=== PATIENT | male | born 2000 | race Asian ===

== ENCOUNTER 2022-04-23 16:59 | Inpatient (IN) | payer OTHER, SELFPAY ==
[2022-04-23 17:47] LABS: #Basophils 0.2 10x3/uL (0.0-0.2); %Basophils 1.6 % (0.0-2.0); %Lymphocytes 4.2 % (18.0-47.0); %Monocytes 9.3 % (0.0-10.0); %Neutrophils 80.9 % (40.0-75.0); Hemoglobin 14.7 g/dL (13.5-17.5); Mean Corpuscular HGB CONC 32.8 g/dL (32.0-36.0); Mean Corpuscular Hemoglobin 29.1 pg (27.0-33.0); Mean Corpuscular Volume 88.7 fl (81.2-95.1); Platelet Count 265 10x3/uL (150-450); RBC Distribution Width 14.7 % (11.5-14.5); Red Blood Cell (RBC) Count 5.05 10x6/uL (4.32-5.72); White Blood Cell (WBC) Count 11.1 10x3/uL (3.5-10.5)
[2022-04-23 17:56] LABS: Actual Bicarbonate (HCO3v) 10 mEq/L (22-28); Base Excess -19.1 mEq/L (-2.0 to +3.0); Calcium, Ionized (venous) 1.22 mmol/L (1.16-1.32); Chloride (VBG) 105 mmol/L (98-106); Hemoglobin (Hb) 15.4 g/dL (13.2-17.3); Potassium (VBG) 5.57 mmol/L (3.70-5.30); Puncture Site Other Site; Sodium 134.6 mmol/L (133-146)
[2022-04-23 18:25] LABS: ALT (SGPT) 15 U/L (8-55); AST (SGOT) 9 U/L (5-34); Albumin 3.5 g/dL (3.5-5.0); Alkaline Phosphatase 96 U/L (40-110); BUN (Urea Nitrogen) 16 mg/dL (8.9-20.6); Bilirubin, Total 0.4 mg/dL (0.2-1.2); Calc. Creatinine Clearance 0 mL/min (70-130); Calcium 8.2 mg/dL (7.8-10.44); Chloride 104 mmol/L (98-107); Estimated GFR 73; Globulin 3.2 g/dL (2.4-3.5); Lipase 103 U/L (8-78); Potassium 5.4 mmol/L (3.5-5.1); Protein, Total 6.7 g/dL (6.0-8.3); Sodium 132 mmol/L (136-145)
[2022-04-23] MEDS ORDERED: INSULIN REGULAR IN 0.9 % NACL 100 UNIT in Premix Bag 1 BAG IVPB SCH (18:30)
[2022-04-23 18:33] LABS: Carbon Dioxide Less than 8 mmol/L (22-29); Glucose 748 mg/dL (70-105)
[2022-04-23 18:34] LABS: SARS-CoV-2 NAA Rapid Test Not Detected (NotDetected)
[2022-04-23] MEDS ORDERED: Ondansetron PF 4 MG/2 ML Vial IVP PRN (19:05)
[2022-04-23] MEDS ORDERED: Acetaminophen 325 MG TAB PO PRN (19:05)
[2022-04-23] MEDS ORDERED: Guaifenesin DM 100-10/5 ML UDCUP PO PRN (19:05)
[2022-04-23] MEDS ORDERED: Calcium Carbonate 500 MG ChewTAB PO PRN (19:05)
[2022-04-23] MEDS ORDERED: Senokot S 8.6-50 MG TAB PO PRN (19:05)
[2022-04-23] MEDS ORDERED: Zolpidem Tartrate 5 MG TAB PO PRN (19:05)
[2022-04-23] MEDS ORDERED: Sodium Chloride 0.45% 1,000 ML IV SCH (21:15)
[2022-04-23] MEDS ORDERED: Sodium Chloride 0.9% 500 ML IV SCH (21:15)
[2022-04-23] MEDS ORDERED: Amlodipine 5 MG TAB PO SCH (21:30)
[2022-04-23] MEDS ORDERED: Atorvastatin Calcium 10 MG TAB PO SCH (21:30)
[2022-04-23 21:39] LABS: Anion Gap 23 mmol/L (10-20); BUN (Urea Nitrogen) 13 mg/dL (8.9-20.6); Calc. Creatinine Clearance 135 mL/min (70-130); Calcium 9.4 mg/dL (7.8-10.44); Carbon Dioxide 10 mmol/L (22-29); Chloride 110 mmol/L (98-107); Estimated GFR 89; Glucose 352 mg/dL (70-105); Magnesium 2.2 mg/dL (1.6-2.6); Potassium 3.7 mmol/L (3.5-5.1); Sodium 139 mmol/L (136-145)
[2022-04-23 21:55] LABS: Phosphorus 1.5 mg/dL (2.3-4.7)
[2022-04-23] MEDS ORDERED: Potassium Chloride 20 MEQ TAB PO SCH (22:15)
[2022-04-23] MEDS: Famotidine/PF 20 mg/2ml Vial SLOW IVP SCH (22:22)
[2022-04-23 22:23] LABS: Bilirubin Neg (Negative); Blood, Urine 25 (Negative); Clarity Clear (Clear); Glucose, Urine (Dipstick) >=1000 mg/dL (Negative); Ketone, Urine 150 mg/dL (Negative); Leukocyte Negative (Negative); Nitrite Negative (Negative); Protein, Urine (Dipstick) 30 mg/dl (Neg-Trace); Urobilinogen Normal mg/dL (Less than 2)
[2022-04-23] MEDS: Lactated Ringer's 1,000 ML IV SCH (22:24)
[2022-04-23 22:45] LABS: Bacteria/HPF Rare-Few HPF (None Seen); RBC/HPF 0-3 HPF (0-3); Squamous Epithelial 0-3 HPF (0-3); WBC/HPF 0-3 HPF (0-3)
[2022-04-23] MEDS ORDERED: Potassium Phosphate 30 MMOL in Sodium Chloride 0.9% 250 ML 250 ML IVPB SCH (23:00)
[2022-04-23] MEDS: Dextrose 5 %-0.45 % NaCl 1,000 ML IV SCH (23:20)
[2022-04-24] MEDS ORDERED: FLU VACC QS2022-23(6MOS UP)/PF 60 MCG/0.5 ML SYRINGE IM ONE (00:30)
[2022-04-24 01:38] LABS: Actual Bicarbonate (HCO3v) 15 mEq/L (22-28); Base Excess -11.5 mEq/L (-2.0 to +3.0); Chloride (VBG) 113 mmol/L (98-106); Critical Notified By: CP.PH; Hemoglobin (Hb) 15.6 g/dL (13.2-17.3); Potassium (VBG) 4.23 mmol/L (3.70-5.30); Puncture Site Other Site; RapidComm Collect By LAB.YY; pH (venous) 7.23 (7.32-7.43)
[2022-04-24 01:59] LABS: Anion Gap 18 mmol/L (10-20); BUN (Urea Nitrogen) 10 mg/dL (8.9-20.6); Calc. Creatinine Clearance 154 mL/min (70-130); Calcium 9.2 mg/dL (7.8-10.44); Carbon Dioxide 15 mmol/L (22-29); Chloride 111 mmol/L (98-107); Estimated GFR 105; Glucose 201 mg/dL (70-105); Magnesium 2.1 mg/dL (1.6-2.6); Phosphorus 2.1 mg/dL (2.3-4.7); Potassium 4.2 mmol/L (3.5-5.1); Sodium 140 mmol/L (136-145)
[2022-04-24] MEDS: INSULIN REGULAR IN 0.9 % NACL 100 UNIT in Premix Bag 1 BAG IVPB SCH ×2 (04:13→13:15)
[2022-04-24] MEDS: Dextrose 5 %-0.45 % NaCl 1,000 ML IV SCH (05:46)
[2022-04-24 06:27] LABS: #Basophils 0.1 10x3/uL (0.0-0.2); #Monocytes 1.1 10x3/uL (0.0-1.1); #Neutrophils 6.1 10x3/uL (1.5-8.4); %Eosinophils 0.3 % (0.0-6.0); %Lymphocytes 11.2 % (18.0-47.0); %Monocytes 12.6 % (0.0-10.0); %Neutrophils 70.6 % (40.0-75.0); Hemoglobin 14.9 g/dL (13.5-17.5); Mean Corpuscular HGB CONC 35.1 g/dL (32.0-36.0); Mean Corpuscular Hemoglobin 29.2 pg (27.0-33.0); Mean Corpuscular Volume 83.2 fl (81.2-95.1); Mean Platelet Volume 9.4 fl (7.4-10.4); Platelet Count 231 10x3/uL (150-450); RBC Distribution Width 14.5 % (11.5-14.5); Red Blood Cell (RBC) Count 5.11 10x6/uL (4.32-5.72); White Blood Cell (WBC) Count 8.7 10x3/uL (3.5-10.5)
[2022-04-24 07:25] LABS: Anion Gap 17 mmol/L (10-20); BUN (Urea Nitrogen) 9 mg/dL (8.9-20.6); Calc. Creatinine Clearance 150 mL/min (70-130); Calcium 8.9 mg/dL (7.8-10.44); Carbon Dioxide 14 mmol/L (22-29); Chloride 112 mmol/L (98-107); Estimated GFR 101; Glucose 169 mg/dL (70-105); Sodium 139 mmol/L (136-145)
[2022-04-24 07:26] LABS: Cholesterol 409 mg/dl (< 200 Desired); HDL Cholesterol 34 mg/dL (>60 Neg Risk); Lipase 95 U/L (8-78)
[2022-04-24] MEDS: Lactated Ringer's 1,000 ML IV SCH (08:11)
[2022-04-24] MEDS: Enoxaparin Sodium 40 MG/0.4 ML SYRINGE SC SCH (08:12)
[2022-04-24] MEDS: Famotidine/PF 20 mg/2ml Vial SLOW IVP SCH ×2 (08:14→20:36)
[2022-04-24 08:20] LABS: Triglycerides 438 mg/dL (Less than 150)
[2022-04-24 09:11] LABS: Phosphorus 2.5 mg/dL (2.3-4.7)
[2022-04-24 09:40] LABS: Anion Gap 14 mmol/L (10-20); BUN (Urea Nitrogen) 8 mg/dL (8.9-20.6); Calc. Creatinine Clearance 176 mL/min (70-130); Calcium 9.1 mg/dL (7.8-10.44); Carbon Dioxide 15 mmol/L (22-29); Chloride 113 mmol/L (98-107); Estimated GFR 123; Glucose 237 mg/dL (70-105); Phosphorus 1.9 mg/dL (2.3-4.7); Potassium 3.4 mmol/L (3.5-5.1); Sodium 139 mmol/L (136-145)
[2022-04-24] MEDS ORDERED: Dextrose 5% in Water 1,000 ML IV PRN (11:10)
[2022-04-24] MEDS ORDERED: Dextrose 50% Abboject 50 ML SYRINGE SLOW IVP PRN (11:10)
[2022-04-24] MEDS: NS 0.9% w/ 20 MEQ KCL 1,000 ML/1,000 ML BAG IV SCH ×2 (11:53→20:37)
[2022-04-24 12:07] LABS: Anion Gap 12 mmol/L (10-20); BUN (Urea Nitrogen) 7 mg/dL (8.9-20.6); Calc. Creatinine Clearance 189 mL/min (70-130); Calcium 9.1 mg/dL (7.8-10.44); Carbon Dioxide 18 mmol/L (22-29); Chloride 111 mmol/L (98-107); Estimated GFR 127; Glucose 268 mg/dL (70-105); Potassium 3.1 mmol/L (3.5-5.1); Sodium 138 mmol/L (136-145)
[2022-04-24] MEDS ORDERED: Potassium Chloride 20 MEQ TAB PO SCH (12:30)
[2022-04-24] MEDS: Atorvastatin Calcium 10 MG TAB PO SCH (20:37)
[2022-04-24] MEDS: HumaLOG 300 UNITS/3 ML VIAL SC PRN (20:51)
[2022-04-24] MEDS: Lantus 1000 UNITS/10 ML VIAL SC SCH (20:52)
[2022-04-24] MEDS ORDERED: Amlodipine 5 MG TAB PO SCH (21:00)
[2022-04-25] MEDS: NS 0.9% w/ 20 MEQ KCL 1,000 ML/1,000 ML BAG IV SCH ×3 (03:50→18:45)
[2022-04-25 04:32] LABS: #Basophils 0.1 10x3/uL (0.0-0.2); #Monocytes 0.7 10x3/uL (0.0-1.1); #Neutrophils 3.6 10x3/uL (1.5-8.4); %Basophils 1.1 % (0.0-2.0); %Eosinophils 0.2 % (0.0-6.0); %Lymphocytes 16.3 % (18.0-47.0); %Monocytes 12.3 % (0.0-10.0); %Neutrophils 66.5 % (40.0-75.0); Hemoglobin 12.6 g/dL (13.5-17.5); Mean Corpuscular HGB CONC 34.3 g/dL (32.0-36.0); Mean Corpuscular Hemoglobin 28.6 pg (27.0-33.0); Mean Corpuscular Volume 83.4 fl (81.2-95.1); Mean Platelet Volume 9.6 fl (7.4-10.4); Platelet Count 187 10x3/uL (150-450); RBC Distribution Width 14.5 % (11.5-14.5); White Blood Cell (WBC) Count 5.4 10x3/uL (3.5-10.5)
[2022-04-25 04:47] LABS: Anion Gap 16 mmol/L (10-20); BUN (Urea Nitrogen) 7 mg/dL (8.9-20.6); Calc. Creatinine Clearance 229 mL/min (70-130); Calcium 8.6 mg/dL (7.8-10.44); Carbon Dioxide 18 mmol/L (22-29); Chloride 110 mmol/L (98-107); Estimated GFR 134; Glucose 225 mg/dL (70-105); Magnesium 1.9 mg/dL (1.6-2.6); Potassium 3.7 mmol/L (3.5-5.1); Sodium 140 mmol/L (136-145)
[2022-04-25 04:51] LABS: Phosphorus 2.6 mg/dL (2.3-4.7)
[2022-04-25] MEDS: Enoxaparin Sodium 40 MG/0.4 ML SYRINGE SC SCH (08:02)
[2022-04-25] MEDS: HumaLOG 300 UNITS/3 ML VIAL SC PRN ×3 (08:02→22:01)
[2022-04-25] MEDS: Famotidine/PF 20 mg/2ml Vial SLOW IVP SCH ×2 (08:02→21:55)
[2022-04-25] MEDS ORDERED: Amlodipine 5 MG TAB PO SCH (11:00)
[2022-04-25] MEDS: glipiZIDE 5 MG TAB PO SCH (18:45)
[2022-04-25] MEDS: metFORMIN 500 MG TAB PO SCH (18:45)
[2022-04-25] MEDS: Lantus 1000 UNITS/10 ML VIAL SC SCH (21:55)
[2022-04-25] MEDS: Atorvastatin Calcium 10 MG TAB PO SCH (21:55)
[2022-04-26 02:43] VITALS: BMI 29.6
[2022-04-26] MEDS: NS 0.9% w/ 20 MEQ KCL 1,000 ML/1,000 ML BAG IV SCH (03:30)
[2022-04-26] MEDS: glipiZIDE 5 MG TAB PO SCH (06:34)
[2022-04-26] MEDS: HumaLOG 300 UNITS/3 ML VIAL SC PRN (06:34)
[2022-04-26 06:48] LABS: Anion Gap 15 mmol/L (10-20); BUN (Urea Nitrogen) 7 mg/dL (8.9-20.6); Calc. Creatinine Clearance 304 mL/min (70-130); Carbon Dioxide 21 mmol/L (22-29); Chloride 107 mmol/L (98-107); Estimated GFR 145; Glucose 292 mg/dL (70-105); Potassium 3.5 mmol/L (3.5-5.1); Sodium 139 mmol/L (136-145)
[2022-04-26 08:32] VITALS: BP 130/82; TEMP 98.8
[2022-04-26] MEDS: Enoxaparin Sodium 40 MG/0.4 ML SYRINGE SC SCH (08:33)
[2022-04-26] MEDS: metFORMIN 500 MG TAB PO SCH (08:34)
[2022-04-26] MEDS: Famotidine/PF 20 mg/2ml Vial SLOW IVP SCH (08:34)
[2022-04-26] MEDS ORDERED: Amlodipine 5 MG TAB PO SCH (09:00)
== END 2022-04-26 11:00 | disposition home or self-care (01) | DRG 638 ==
LOC: CSHERS 16:59 → CSHICU 20:53 → CSHTELE 04-25 12:37
PROVIDERS: ADMIT Student in an Organized Health Care Education/Training Program; ATTEND Family Medicine
DX: E11.10 Type 2 diabetes mellitus with ketoacidosis without coma (principal); N17.9 Acute kidney failure, unspecified; R65.10 Systemic inflammatory response syndrome (SIRS) of non-infectious origin without acute organ dysfunction; Z20.822 Contact with and (suspected) exposure to COVID-19; E87.5 Hyperkalemia; I10 Essential (primary) hypertension; E78.5 Hyperlipidemia, unspecified; E86.0 Dehydration; E66.9 Obesity, unspecified; Z91.14 Patient's other noncompliance with medication regimen; Z68.29 Body mass index [BMI] 29.0-29.9, adult; Z82.49 Family history of ischemic heart disease and other diseases of the circulatory system; Z82.3 Family history of stroke; Z79.84 Long term (current) use of oral hypoglycemic drugs; Z79.899 Other long term (current) drug therapy
CPT/HCPCS: 36415; 36416; 71045; 80048; 80053; 80061; 81001; 82010; 82550; 82805; 83036; 83690; 83735; 84100; 85025; 94760; 96361; 96365; 96366; J1650; J1815; J3480; J7030; J7042; J7050; J7120; S0028; U0002